=== PATIENT | male | born 1985 | race Caucasian/White ===

== ENCOUNTER 2025-04-08 07:32 | Emergency (ER) | payer OTHER ==
[~2025-04-08] VITALS: Ht 172.7 cm; Wt 73.9 kg
[~2025-04-08 07:32] MED LIST: AZITHROMYCIN250 MG PO; BENZONATATE200 MG PO; FLONASE ALLERG9.9 ML INH; IBUPROFEN600 MG PO; MUCINEX DM ER1 EAC1 PO; ONDANSETRON ODT4 MG PO; ULTRAM 50MG50 MG PO; ZYRTEC-D TABLE1 EACH PO
[2025-04-08 07:42] VITALS: TEMP 98.4
[2025-04-08 08:04] LABS: BASOPHILS % 0.6 % (0.0-1.0); EOSINOPHILS % 2.0 % (0.0-6.0); LYMPHOCYTES % 49.0 % (18.0-39.1); MONOCYTES % 8.3 % (4.4-11.3); NEUTROPHILS % 39.9 % (38.7-80.0); RED CELL DISTRIBUTION WIDTH 13.0 % (11.7-14.4)
[2025-04-08] MEDS: SODIUM CHLORIDE 0.9% 1000ML 1,000 ML IV STA (08:11)
[2025-04-08] MEDS: ONDANSETRON HCL INJ 2MG/ML 2ML 2 MG/ML VIAL IV STA (08:11)
[2025-04-08] MEDS: KETOROLAC TROMETHAMINE 30 MG/ML VIAL IV STA (08:11)
[2025-04-08 08:27] LABS: EST GLOMERULAR FILTRATION RATE 106.0 ML/MIN (>=60)
[2025-04-08 08:29] LABS: LEUKOCYTE ESTERASE ,URINE NEGATIVE (NEGATIVE); PROTEIN,URINE DIPSTICK 2+ (NEGATIVE); URINE UROBILINOGEN 0.2 mg/dL (0.2 - 1)
[2025-04-08 08:43] LABS: EPITHELIAL CELLS,URINE RARE /LPF; WBC,URINE (MAN) 0-5 /HPF (0-5)
[2025-04-08 08:56] LABS: AMPHETAMINES SCREEN,URINE NEGATIVE (NEGATIVE); CANNABINOIDS SCREEN,URINE NEGATIVE (NEGATIVE); COCAINE SCREEN,URINE NEGATIVE (NEGATIVE); METHADONE SCREEN, URINE NEGATIVE (NEGATIVE); OPIATES SCREEN,URINE NEGATIVE (NEGATIVE)
[2025-04-08] MEDS ORDERED: HYDROCODON-ACE1 EA11 PO (09:14)
[2025-04-08] MEDS ORDERED: ONDANSETRON ODT4 MG PO (09:14)
[2025-04-08] MEDS ORDERED: FLOMAX0.4 MG PO (09:14)
[2025-04-08 09:30] VITALS: PULSE 70; RESP 18
[2025-04-08 09:35] VITALS: BP 143/78; PULSE 76; RESP 17; TEMP 97.6; O2SAT 100
== END 2025-04-08 10:02 | disposition home or self-care (01) ==
LOC: ER 07:57
DX: Z46.6 Encounter for fitting and adjustment of urinary device (principal); N39.0 Urinary tract infection, site not specified; Z16.35 Resistance to multiple antimicrobial drugs; R10.9 Unspecified abdominal pain; R11.0 Nausea; E78.5 Hyperlipidemia, unspecified; E78.00 Pure hypercholesterolemia, unspecified; M54.9 Dorsalgia, unspecified; G89.29 Other chronic pain; Z87.442 Personal history of urinary calculi
CPT/HCPCS: 36415; 74176; 80053; 80307; 81001; 85025; 99284; J1885; J2405; J7030